=== PATIENT | female | born 2005 | race African-American/Black ===

== ENCOUNTER 2024-09-12 21:44 | Outpatient (CLI) | payer OTHER, SELFPAY ==
[2024-09-12 22:36] LABS: Add Manual Diff / Slide Review NO; Basophils Absolute Auto 100 /uL (0-100); Basophils Percent Auto 1.1 % (0-2); Eosinophils Absolute Auto 100 /uL (0-450); Eosinophils Percent Auto 1.3 % (2-4); Hematocrit 33.5 % (36-46); Hemoglobin 11.1 g/dL (12.0-16.0); Lymphocytes Absolute Auto 1700 /uL (1100-4500); Lymphocytes Percent Auto 27.9 % (25-40); Mean Corpuscular Hemoglobin 27.9 PG (26-34); Mean Corpuscular Volume 84.4 fL (80-100); Monocytes Absolute Auto 400 /uL (0-900); Monocytes Percent Auto 7.4 % (3-14); Neutrophils Absolute Auto 3800 /uL (1500-7000); Neutrophils Percent Auto 62.3 % (50-75); Platelet Count 308 X10^3/uL (150-400); Red Blood Cell Count 3.97 X10^6/uL (4.0-5.2); Red Cell Distribution Width 14.5 % (11.6-14.8); White Blood Cell Count 6.1 X10^3/uL (4.5-11.0)
[2024-09-12 22:47] LABS: Alanine Aminotransferase 41 IU/L (<35); Albumin 2.8 g/dL (3.5-5.0); Albumin Globulin Ratio 0.8 (1.0-2.8); Alkaline Phosphatase 130 U/L (38-126); Aspartate Aminotransferase 37 IU/L (14-36); Bilirubin Total 0.3 mg/dL (0.2-1.3); Blood Urea Nitrogen 7 mg/dL (7-17); Calcium 8.4 mg/dL (8.4-10.2); Carbon Dioxide 19 mmol/L (22-32); Chloride 110 mmol/L (98-107); Estimated Glomerular Filt Rate > 60 mL/min (>60); Globulin 3.6 g/dL (1.7-4.1); Glucose 118 mg/dL (70-100); HEMOLYSIS < 15 (0-50); Potassium 3.7 mmol/L (3.4-5.1); Sodium 136 mmol/L (137-145); Total Protein 6.4 g/dL (6.3-8.2); Uric Acid 4.6 mg/dL (2.5-6.2)
--- NOTE | 2024-09-12 22:55 | P.TNLD_ITS ---
Visit Information Visit Information Date of evaluation: 09/12/24 On-call OB Provider: Harika Velasco Comments/Additional reasons for admission: 19 yo G1 at 36w4d here for concern of SROM. Normally receives care at [facility], on divert so told to come here. She does have elevated proteinuria otherwise has been uncomplicated. She initially complained of headache. Vital Signs Vital Signs: BP: 143/92, repeat 133/81 Objective Labs 09/12/24 22:21 09/12/24 22:21 Labs: Laboratory Results - last 24 hr 09/12/24 22:21 WBC 6.1 RBC 3.97 L Hgb 11.1 L Hct 33.5 L MCV 84.4 MCH 27.9 MCHC 33.0 RDW 14.5 Plt Count 308 Neut % (Auto) 62.3 Lymph % (Auto) 27.9 [place] % (Auto) 7.4 Eos % (Auto) 1.3 L Baso % (Auto) 1.1 Neut # (Auto) 3800 Lymph # (Auto) 1700 [place] # (Auto) 400 Eos # (Auto) 100 Baso # (Auto) 100 Sodium 136 L Potassium 3.7 Chloride 110 H Carbon Dioxide 19 L BUN 7 Creatinine 0.50 L Estimated GFR > 60 BUN/Creatinine Ratio 14.0 Glucose 118 H Uric Acid 4.6 Calcium 8.4 Total Bilirubin 0.3 AST 37 H ALT 41 H Alkaline Phosphatase 130 H Total Protein 6.4 Albumin 2.8 L Globulin 3.6 Albumin/Globulin Ratio 0.8 L Evaluation Evaluation Baseline heart rate: 145 Variability: Average (6-10) monitor accelerations: Present Monitor Decelerations: Absent Category of Tracing: Reactive Diagnosis, Plan/Disposition Plan/Disposition Plan: 19 yo G1 at 36w4d here with concern for SROM. Amnisure negative. She does meet criteria for pre-eclampsia with known proteinuria and now elevated blood pressures, although none severe and initial pressure did resolve to normal. She initially had a headache that resolved. CMP concerning for AST/ALT elevation although not equal to or greater than 2x normal limit. AST 37, ALT 41. Creatinine 0.5; Platelets 308. Recommend follow up with primary OB tomorrow and repeat labs in 24-48. Pre-eclampsia return precautions given. OB Disposition: home
== END 2024-09-12 23:08 | disposition home or self-care (01) ==
LOC: OB 09-13 08:08
PROVIDERS: Referring Provider Student in an Organized Health Care Education/Training Program; Visit Provider Student in an Organized Health Care Education/Training Program
DX: Z03.71 Encounter for suspected problem with amniotic cavity and membrane ruled out (principal); O14.03 Mild to moderate pre-eclampsia, third trimester; Z3A.36 36 weeks gestation of pregnancy
CPT/HCPCS: 36415; 59025; 80053; 84112; 84550; 85025; G0378; G0379